=== PATIENT | female | born 1970 | race Caucasian/White ===

== ENCOUNTER 2017-04-24 04:21 | Emergency (ER) | payer BC, SELFPAY ==
[2017-04-24 04:23] VITALS: BP 143/89; PULSE 87; RESP 18; TEMP 37.6; O2SAT 99; BMI 40.0
[2017-04-24 04:32] LABS: Mucous, Urine 0 SEEN /hpf (<or=2+)
[2017-04-24 04:42] LABS: Color, Urine Red (Yellow); Glucose, Dipstick Normal (Normal); Ketone-Dipstick 15 mg/dl (Negative); Leukocyte Esterase-Dipstick 500 /ul (Negative); Nitrite-Dipstick Negative (Negative); Occult Blood-Urine 250 /ul (Negative); Protein-Dipstick 100 mg/dl (Negative); Urine Bilirubin Dipstick Negative (Negative); Urine Clarity Cloudy (Clear); Urine Urobilinogen Normal (Normal)
[2017-04-24 04:51] LABS: Bacteria 1+ /hpf (None Seen); Red Blood Cells-Urine > 100 SEEN /hpf (0-5); Squamous Epithelial Cells - UA 0-5 SEEN /hpf (5-10); White Blood Cells >100 SEEN /hpf (0-5)
--- NOTE | 2017-04-24 05:11 | ED.VISSUMM ---
- ER Visit Summary Date of Service: 04/24/17 Chief Complaint: [Hematuria] History of Present Illness: The patient is a 46 F [who presents the emergency department with hematuria that started at 1 AM this morning. She has had some mild frequency over the last couple of days. Some mild dysuria. No back pain no nausea or vomiting no other associated symptoms. She has had subjective fevers at home which she describes as feeling warm she has a history of UTIs as well as kidney stones hypertension GERD IBS depression. She was on Bactrim 3 weeks ago for UTI and she had a CAT scan 3 weeks ago for possible kidney stones but did not have urolithiasis at that time. She has had a cholecystectomy and 2 C-sections] Physical Examination: [] Temperature 99.7 blood pressure 143/89 WN WD NAD PERRL EOMI MMM NECK supple and nontender, no masses RRR no murmur rub or gallop, no peripheral edema, symmetric radial pulses CTAB no respiratory distress ABDOMEN is soft she has mild suprapubic and bilateral lower quadrant tenderness, normal bowel sounds, no distension, no rebound or guarding No CVA tenderness SKIN is warm and dry no rashes Alert and Oriented x3, CN II-XII in tact, no motor or sensory deficits, gait normal No lymphadenopathy Test Results: [] Emergency Department Course and Treatment: [Urine was obtained and was loaded with white blood cells and red blood cells. Urine culture was sent. This is likely hemorrhagic cystitis. She has no signs of urolithiasis at this point. She will be given Keflex for home. She was given precautions for which to return including worsening symptoms flank pain or other concerns. She will follow-up with her primary physician.] Treatment Plan: [] Disposition: [Discharge] Impression: [Hemorrhagic cystitis] This note was generated with [employer] dictation software. It may contain incorrect words, spelling, and punctuation that were not noted in review of the chart prior to signing ED Disposition - Plan for ED Patient: Chief Complaint: Complaint Referrals: Joshua Wu MD [Primary Care Provider] -
--- NOTE | 2017-04-24 05:14 | ED.DEP ---
ED Disposition - Plan for ED Patient: Chief Complaint: Complaint Instructions: ED UTI Cystitis Female Prescriptions: Cephalexin [Keflex] 500 mg PO Q8 #21 capsule Phenazopyridine HCl [Pyridium] 200 mg PO BID PRN PRN #9 tablet PRN Reason: Pain Referrals: Joshua Wu MD [Primary Care Provider] - 3-5 Days
[2017-04-24] MEDS: Cephalexin 250 MG Capsule 500 MG PO (05:19)
[2017-04-24] MEDS: Phenazopyridine 95 MG Tablet 190 MG PO (05:31)
--- NOTE | 2017-04-24 05:34 | ED.RN ---
DISCHARGE INSTRUCTIONS GIVEN TO AND REVIEWED WITH PATIENT, PATIENT DENIES QUESTIONS OR CONCERNS AND VOICES UNDERSTANDING OF DISCHARGE INSTRUCTIONS. PT AMBULATES OUT OF ROOM WITHOUT DIFFICULTY.
== END 2017-04-24 05:35 | disposition home or self-care (01) ==
PROVIDERS: Emergency Provider Emergency Medicine; Family Provider Family Medicine; PCP Family Medicine
DX: N30.90 Cystitis, unspecified without hematuria (principal); E66.9 Obesity, unspecified; F32.9 Major depressive disorder, single episode, unspecified; I10 Essential (primary) hypertension; K21.9 Gastro-esophageal reflux disease without esophagitis; Z90.49 Acquired absence of other specified parts of digestive tract; Z87.442 Personal history of urinary calculi; Z87.440 Personal history of urinary (tract) infections; K58.9 Irritable bowel syndrome, unspecified
CPT/HCPCS: 81001; 87086; 87088; 87186; 99283

== ENCOUNTER 2017-05-21 19:16 | Emergency (ER) | payer BC, SELFPAY ==
[2017-05-21 19:16] VITALS: BP 129/64; PULSE 90; RESP 16; TEMP 36.9; O2SAT 97; BMI 39.9
--- NOTE | 2017-05-21 19:26 | ED.VISSUMM ---
- ER Visit Summary Date of Service: 05/21/17 Chief Complaint: Dysuria and hematuria. History of Present Illness: The patient is a 47 F history of UTIs and depression. UTI was diagnosed in late March and was E. coli sensitive to all antibiotics. She was treated with Keflex and it resolved. Patient just recently had a gastric balloon placed by [facility] for weight loss. She states she started having urinary tract symptoms last several days with hematuria and dysuria. She denies fever or back pain. She denies vomiting or diarrhea. Physical Examination: Well-appearing middle-age female. Vital signs are stable afebrile. She does not look septic or toxic. She is no acute distress. HEENT exam unremarkable. Moist wheeze membranes. Neck nontender. Lungs clear to auscultation bilaterally. Heart regular rate and rhythm no murmur. Abdomen soft and nontender. Normal bowel sounds no peritoneal signs. Moving all 4 extremities. Neurovascular intact. Back exam nontender. Neurologically she is awake alert no focal deficits. Test Results: Urinalysis UTI with greater than 100 white cells . 5 to 10 epithelial cells 1+ bacteria. Negative nitrites. This will be treated for UTI. Also patient's last urine culture was E. coli was sensitive to everything. Emergency Department Course and Treatment: Patient doing well repeat exam at 2014. Will be given a dose of Keflex here and discharged home on Keflex 4 times daily for 1 week. Follow-up primary care physician. I am not doing a urine culture this time since the last UTI with urine culture. Treatment Plan: [] Disposition: Discharge to home Impression: Acute UTI This note was generated with [employer] dictation software. It may contain incorrect words, spelling, and punctuation that were not noted in review of the chart prior to signing ED Disposition - Plan for ED Patient: Chief Complaint: Complaint Referrals: Joshua Wu MD [Primary Care Provider] -
--- NOTE | 2017-05-21 19:29 | ED.DCSUM_ITS ---
- ER Visit Summary Date of Service: 05/21/17 Chief Complaint: Dysuria and hematuria. History of Present Illness: The patient is a 47 F history of UTIs and depression. UTI was diagnosed in late March and was E. coli sensitive to all antibiotics. She was treated with Keflex and it resolved. Patient just recently had a gastric balloon placed by [facility] for weight loss. She states she started having urinary tract symptoms last several days with hematuria and dysuria. She denies fever or back pain. She denies vomiting or diarrhea. Physical Examination: Well-appearing middle-age female. Vital signs are stable afebrile. She does not look septic or toxic. She is no acute distress. HEENT exam unremarkable. Moist wheeze membranes. Neck nontender. Lungs clear to auscultation bilaterally. Heart regular rate and rhythm no murmur. Abdomen soft and nontender. Normal bowel sounds no peritoneal signs. Moving all 4 extremities. Neurovascular intact. Back exam nontender. Neurologically she is awake alert no focal deficits. Test Results: Urinalysis UTI with greater than 100 white cells . 5 to 10 epithelial cells 1+ bacteria. Negative nitrites. This will be treated for UTI. Also patient's last urine culture was E. coli was sensitive to everything. Emergency Department Course and Treatment: Patient doing well repeat exam at 2014. Will be given a dose of Keflex here and discharged home on Keflex 4 times daily for 1 week. Follow-up primary care physician. I am not doing a urine culture this time since the last UTI with urine culture. Treatment Plan: [] Disposition: Discharge to home Impression: Acute UTI This note was generated with [employer] dictation software. It may contain incorrect words, spelling, and punctuation that were not noted in review of the chart prior to signing ED Disposition - Plan for ED Patient: Chief Complaint: Complaint Referrals: Joshua Wu MD [Primary Care Provider] -
[2017-05-21 19:42] LABS: Color, Urine Yellow (Yellow); Glucose, Dipstick Normal (Normal); Ketone-Dipstick 50 mg/dl (Negative); Leukocyte Esterase-Dipstick 500 /ul (Negative); Mucous, Urine 0 SEEN /hpf (<or=2+); Nitrite-Dipstick Negative (Negative); Occult Blood-Urine 250 /ul (Negative); Protein-Dipstick 100 mg/dl (Negative); Specific Gravity, Urine 1.025 (1.002-1.030); Urine Clarity Cloudy (Clear); Urine Urobilinogen 4 mg/dl (Normal)
[2017-05-21 19:45] LABS: Urine Bilirubin Dipstick 1 mg/dL (Negative)
[2017-05-21 19:49] LABS: Red Blood Cells-Urine 50-100 SEEN /hpf (0-5); White Blood Cells >100 SEEN /hpf (0-5)
[2017-05-21 19:50] LABS: Amorphous Sediment 1+ URATE; Bacteria 1+ /hpf (None Seen); Squamous Epithelial Cells - UA 5-10 SEEN /hpf (5-10)
--- NOTE | 2017-05-21 20:21 | ED.DEP ---
ED Disposition - Plan for ED Patient: Disposition: Home or Assisted Living Chief Complaint: Complaint Instructions: ED UTI Cystitis Male Prescriptions: Cephalexin [Keflex] 500 mg PO Q6 #30 cap Referrals: Joshua Wu MD [Primary Care Provider] - 1 Week Additional Instructions: Fluids and rest. Tylenol Motrin for pain. Cranberry juice. Take all the antibiotic. Follow-up your primary care physician.
[2017-05-21] MEDS: Cephalexin 250 MG Capsule 500 MG PO ×2 (20:39)
[2017-05-21 20:41] VITALS: PULSE 91; RESP 22; O2SAT 100
--- NOTE | 2017-05-21 20:41 | ED.RN ---
THIS NURSE REVIEWED D/C INSTRUCTIONS WITH PT. PT VERBALIZED UNDERSTANDING OF INSTRUCTIONS. PT DENIES FURTHER NEEDS OR QUESTIONS AT THIS TIME. PT AMBULATES FROM ROOM ON OWN WITHOUT ASSISTANCE FROM STAFF
== END 2017-05-21 20:42 | disposition home or self-care (01) ==
PROVIDERS: Emergency Provider Emergency Medicine; Family Provider Family Medicine; PCP Family Medicine
DX: N39.0 Urinary tract infection, site not specified (principal); I10 Essential (primary) hypertension; Z87.440 Personal history of urinary (tract) infections; F32.9 Major depressive disorder, single episode, unspecified
CPT/HCPCS: 81001; 99283

== ENCOUNTER 2017-12-28 08:37 | Day surgery (SDC) | payer BC, SELFPAY ==
[2017-12-26 14:47] LABS: Hematocrit 38.9 % (37-47); Hemoglobin 12.6 g/dl (12.0-15.0); Mean Corp Hgb Conc 32.4 g/gl (32-36); Mean Corpuscular Hgb 26.7 pg (27.0-32.0); Mean Corpuscular Volume 82.4 fL (81-99); Mean Platelet Vol. 10.7 fl (6.2-12.0); Platelet Count 291 K/mm3 (150-450); RBC Distribution Width CV 13.8 % (11.6-14.6); RBC Distribution Width SD 40.6 fl (35.1-43.9); Red Blood Count 4.72 M/mm3 (4.2-5.4); White Blood Count 10.7 K/mm3 (4.4-11.0)
[2017-12-26 14:50] LABS: Scan Indicated on CBC? Y/N NO
[2017-12-28] VITALS (11 sets, daily range): BP systolic 82–137; BP diastolic 54–97; PULSE 67–101; RESP 16–18; TEMP 36.2–36.9; O2SAT 93–98; BMI 36.6
--- NOTE | 2017-12-28 | HYST_PTH ---
PATIENT: NORE[place]OS [place] [facility] [id number] AGE/SX: 47/F ROOM: RE12/28/[address]: Dr. Ghazal Mcintyre, MDDOB: 1970 BED: DIS: 12/29/2017 SPEC #: [id number] RECD: 12/28/17 14:13 STATUS: [place] IVA #: [id number] DAVID: 12/28/17 00:[address]: Ghazal Mcintyre DEPT: SURGICAL PATHOLOGY RECD BY: Anatoly Edmonds ENTERED: 12/28/17 14:13 SP TYPE: HYSTERECT OTHR DR: Dr. Joshua Wu MD Tissues: Uterus, NOS Procedures: Surgery Specimen Level V HEADER OPERATION: Total laparoscopic hysterectomy, bilateral salpingectomy PRE-OP DIAGNOSIS: Abnormal uterine bleeding, pelvic pain TISSUE SUBMITTED: Uterus, cervix, bilateral fallopian tubes MICROSCOPIC DIAGNOSIS Uterus, cervix, bilateral fallopian tubes, hysterectomy and bilateral salpingectomy: Cervix - no pathologic diagnosis. Endometrium - extensive fibrosis. - Focal area of weakly proliferative endometrium. Myometrium - no pathologic diagnosis. Bilateral fallopian tubes - no pathologic diagnosis. Bilateral paratubal cysts. SJ:ministerio 12/29/17 MICROSCOPIC DESCRIPTION Slides are reviewed. GROSS DESCRIPTION Received in fixative is one container labeled with the patient's name and designated uterus, cervix, bilateral fallopian tubes. The specimen consists of a hysterectomy specimen consisting of uterus with cervix and detached bilateral fallopian tubes. The uterus with cervix weighs 56 gm and measures 7 x 5 x 3.5 cm. A portion of proximal right fallopian tube is present at one cornu measuring 0.5 cm in length and 0.5 cm in diameter. The serosal surface is oliveira, glistening. The ectocervical mucosa is unremarkable. The external os is circular in contour. The endocervical canal measures 2.5 cm in length and the endocervical mucosa is oliveira, glistening and unremarkable. The endometrial cavity is narrow and measures 3.5 cm in length and 0.5 cm in width. The endometrium appears fibrotic and measures <0.1 cm in greatest dimension. Sections of the uterine wall do not reveal any mass lesion and it measures up to 1.5 cm in thickness. The fallopian tubes are not identified as right or left and one of the fallopian tube measures 5 cm in length and up to 0.5 cm in diameter. Sections reveal unremarkable cut surfaces. The fimbrial end is not identified. Also received is a detached piece of fimbrial end measuring 2 x 1.5 x 0.5 cm. Two paratubal cysts are noted measuring 0.2 and 0.5 cm in greatest dimension. The second fallopian tube measures 4 cm in length and 0.5 cm in diameter. The fimbrial end is not identified. Sections reveal unremarkable cut surfaces. A detached paratubal cyst is also noted measuring 1 cm in greatest dimension. A detached small piece of fallopian tube is also noted measuring 0.7 cm in greatest dimension. This piece is inked black. A second piece of fimbrial end is also noted with portion of fallopian tube including fimbrial end measuring 2 cm in length and 0.5 cm in diameter. Automatic [employer]endant sections are submitted in eight cassettes as follows: 1 - anterior cervix, 2 - posterior cervix, 3 & 4 - anterior uterine wall, 5 & 6 - posterior uterine wall, 7 - one fallopian tube, one fimbrial end and attached proximal portion of right fallopian tube, 8 - second fallopian tube, second fimbrial end and detached small piece of fallopian tube. The proximal portion of right fallopian tube and detached small piece of fallopian tube are inked black. / MAYDA:ministerio 12/28/17 TC:5 CPT: 28913
[2017-12-28 09:07] LABS: Internal QC Validated? YES +Cl - CLEAR BKGD; Pregnancy, Urine Negative Negative
[2017-12-28] MEDS: Phenazopyridine 95 MG Tablet 190 MG PO (09:25)
[2017-12-28] MEDS: Bupivacaine Mpf 0.5% 30 ML VIAL (12:02)
--- NOTE | 2017-12-28 12:46 | PCM.OP.BLANK ---
Operative Report Date of Procedure: 12/28/17 Pre-Operative Diagnosis: AUB, Pelvic pain Post-Operative Diagnosis: same, Surgery/Procedure Performed:: TLH, Bilateral salpingectomy, Cysto Description of Surgical Findings: Uterus with small pedunculated fibroid. Normal ovaries, tubes with bilateral filshie clips Surgeon: Dr. Ghazal Parker knit tubing dyer: Dr. Frances Larkin Type of Anesthesia:: General Special Medications: 1% Lidocaine Specimen's removed: uterus, cervix, bilateral tubes Drains: tracy - total output 450cc Estimated Blood Loss (mL): 50cc Fluids replaced: 1700cc LR Description of Procedure: Patient take to OR and prepped and draped in usual sterile fashion in dorsal lithotomy position with her arms tucked in a neurologically safe and neutral position. The uterus sounded to 7 cm. The Vcare uterine manipulator was sutured into place at 3/9:00 position and tracy were placed. Attention was turned to the abdomen. All port sites were infiltrated with 1% lidocaine before the incisions were made. The anterior abdominal wall was tented up with towel clamps and using a direct entry approach a 5 mm intraumbilical port was placed. Intraperitoneal placement was confirmed with the laparoscope and the pneumoperitoneum was created. The patient was placed in Trendelenburg and 5 mm right and left lower quadrant ports were placed under direct visualization. Air seal rapid insufflator was used. The bowel was swept away. Ovaries appeared normal. The mesosalpinx starting at fimbriated end were grasped, clamped, sealed and transected with the Ligasure. The round ligaments were divided. The anterior peritoneum was dissected down to create the bladder flap with blunt dissection and the LigaSure. The uterine arteries were isolated, clamped, sealed and cut. There was minimal back bleeding from the uterus. Straight bites on uterine arteries performed to drop them off the cuff. The Vcare was used as guide to create colpotomy using monopolar tip of ligasure. once specimen was removed attention was turned to vaginal portion. The specimen was handed off. The cuff was closed with interrupted 0-vicryl figure of 8 sutures. Cystoscopy was performed bilateral ureters were visualized with good efflux. bladder was intact. tracy replaced and sponge stick placed in vagina. The pneumoperitoneum was recreated and the cuff and pedicles were hemostatic. Presley was placed over cuff and pedicles. The skin incisions were closed with skin glue and 3-0 monocryl in the LLQ port site. The vaginal sweep was completed by me. Grafts/Implants Used: none
[2017-12-28] MEDS: Ketorolac 30 MG/ML Syringe IV ×2 (15:20→21:25)
[2017-12-28] MEDS: oxyCODONE 5 MG Tablet PO (15:37)
[2017-12-28] MEDS: HYDROmorphone 1 MG/ML Syringe IV ×2 (18:44→22:46)
[2017-12-28] MEDS: buPROPion 100 MG Tablet PO (21:25)
[2017-12-28] MEDS: Docusate Sodium 100 MG Capsule PO (21:25)
[2017-12-28] MEDS: Lactated Ringers 1,000 ML 100 ML IV (22:48)
[2017-12-29 01:38] VITALS: BP 116/80; PULSE 90; RESP 16; TEMP 36.7; O2SAT 94
[2017-12-29] MEDS: oxyCODONE 5 MG Tablet PO ×2 (02:28→07:47)
[2017-12-29] MEDS: Acetaminophen 500 MG Tablet 1000 MG PO (02:28)
[2017-12-29] MEDS: Ketorolac 30 MG/ML Syringe IV ×2 (04:10→09:05)
[2017-12-29 05:49] VITALS: BP 120/80; PULSE 87; RESP 16; TEMP 37.1; O2SAT 95
[2017-12-29 07:55] VITALS: BP 141/83; PULSE 88; RESP 14; TEMP 37.2; O2SAT 97
[2017-12-29 07:56] LABS: Hematocrit 34.7 % (37-47); Hemoglobin 11.3 g/dl (12.0-15.0); Mean Corp Hgb Conc 32.6 g/gl (32-36); Mean Corpuscular Hgb 26.8 pg (27.0-32.0); Mean Corpuscular Volume 82.4 fL (81-99); Mean Platelet Vol. 10.7 fl (6.2-12.0); Platelet Count 265 K/mm3 (150-450); RBC Distribution Width CV 13.5 % (11.6-14.6); RBC Distribution Width SD 39.8 fl (35.1-43.9); Red Blood Count 4.21 M/mm3 (4.2-5.4); White Blood Count 14.5 K/mm3 (4.4-11.0)
[2017-12-29 08:03] LABS: Scan Indicated on CBC? Y/N NO
--- NOTE | 2017-12-29 08:03 | PCM.PN.OB ---
Subjective: pt seen at bedside, doing well. pt reports good pain control. pt reports passing flatus, tolerating regular diet. denies CP, SOB, dizziness. - Physical Exam General: Alert, Oriented x3 Lungs: Clear to auscultation, Normal air movement Cardiovascular: Regular rate, Regular Rhythm Abdomen: Bowel Sounds Present, Soft, Non-Distended, Passing Flatus, - - incison sites are dry and intact Extremities: No Calf Tenderness Vital Signs Temp Pulse Resp BP Pulse Ox 98.9 F 88 14 141/83 H 97 12/29/17 07:55 12/29/17 07:55 12/29/17 07:55 12/29/17 07:55 12/29/17 07:55 Oxygen Flow Rate (L/min) 2 Oxygen Delivery Method Room Air Weight: 102.9 kg Body Mass Index (BMI) 36.6 Intake and Output for Last 24 Hours 12/27/17 12/28/17 12/29/17 23:59 23:59 23:59 Intake Total 2200 / 2200 2403 / 2403 Output Total 1920 / 1920 850 / 850 Balance 280 / 280 1553 / 1553 Laboratory Tests Past 24 Hrs 12/28/17 12/29/17 08:56 06:58 WBC Pending RBC Pending Hgb Pending Hct Pending MCV Pending MCH Pending MCHC Pending RDW Pending RDW Differential Pending Plt Count Pending Urine Test Negative Medical Necessity - Tobacco Use Smoking Status: Never smoker Assessment/Plan POD#1, s/p TLH, bilateral salpingectomy, cyst 1) routine care 2) ambulation 3) pain mgmt 4) labs pending 5) if stable Hg/HCT may discharge after breakfast
--- NOTE | 2017-12-29 08:09 | DCINST_ITS ---
Discharge Diet: No Restrictions Discharge Activity: Return to Normal Activity, May Not Drive - while taking narcotic pain medications., May Shower May resume sexual activity in: 6-8 weeks Lifting Restrictions: 20 Call your doctor if your incision/area has: Continuous Slow Oozing, Sudden Increased Bleeding, Increased Pain/ Swelling, Increased Redness, Foul Smelling Discharge Call your doctor if you observe: Fever of 101 or Higher, Inability to urinate, Inability to have a bowel movement, Using more than one pad per hour Cleanse incision/area with: Soap & Water, Keep Dressing Clean & Dry, - - you have skin glue over incision sites- let soap and water run over them and dab dry. do not pick off glue Allergies/Adverse Reactions: Allergies Iodinated Contrast- Oral and IV Dye [Iodinated Contrast Media - IV Dye] Allergy (Severe, Verified 12/25/17 14:54) Anaphylaxis AUDRA Inhibitors Allergy (Verified 12/25/17 14:54) Shortness of breath povidone-iodine [From Betadine] Allergy (Verified 12/25/17 14:54) Unknown soap [From Betadine] Allergy (Verified 12/25/17 14:54) Unknown Medications to take at Discharge Cholecalciferol (Vitamin D3) [Vitamin D3] 2,000 unit PO DAILY 03/28/17 Loratadine [Claritin] 10 mg PO DAILY 03/28/17 Losartan Potassium [Cozaar] 100 mg PO DAILY 03/28/17 Omeprazole 40 mg PO DAILY 03/28/17 Sertraline HCl [Zoloft] 100 mg PO DAILY 03/28/17 buPROPion tablets [Wellbutrin tablets] 100 mg PO BID 03/28/17 Docusate Sodium [Colace] 100 mg PO BID #0 capsule 12/29/17 Primary Care Physician: Joshua Wu MD [Primary Care Provider] - Test Results: Test results from this visit will be discussed in further detail at your follow- up appointment, if applicable. Please Follow Up With: Ghazal Mcintyre MD When: 2 weeks
[2017-12-29] MEDS: Docusate Sodium 100 MG Capsule PO (09:02)
[2017-12-29] MEDS: Loratadine 10 MG Tablet PO (09:02)
[2017-12-29] MEDS: Losartan Potassium 100 MG Tablet PO (09:03)
[2017-12-29] MEDS: Enoxaparin 40 MG/0.4 ML Syringe SC (09:04)
[2017-12-29] MEDS: buPROPion 100 MG Tablet PO (09:05)
[2017-12-29] MEDS: Sertraline 100 MG Tablet PO (09:05)
[2017-12-29] MEDS: 0.9% NaCl Peripheral Flush Adult/Peds IV (09:06)
== END 2017-12-29 11:14 | disposition home or self-care (01) ==
LOC: SDC 08:38 → AC 08:39 → MS3 12:33
PROVIDERS: Anesthesiology; Obstetrics & Gynecology; Family Provider Family Medicine; PCP Family Medicine; Visit Provider Obstetrics & Gynecology
PROC: 0UT94ZZ Resection of Uterus, Percutaneous Endoscopic Approach (ICD-10-PCS; CPT 58571; principal; 2017-12-28 10:25)
DX: R10.2 Pelvic and perineal pain (principal); N83.8 Other noninflammatory disorders of ovary, fallopian tube and broad ligament; D25.9 Leiomyoma of uterus, unspecified; K21.9 Gastro-esophageal reflux disease without esophagitis; F32.9 Major depressive disorder, single episode, unspecified; I10 Essential (primary) hypertension; J45.909 Unspecified asthma, uncomplicated
CPT/HCPCS: 00840; 58571; 36415; 81025; 85027; 86850; 86900; 88307; J7120; A4216; J2405

== ENCOUNTER 2018-09-30 15:23 | Emergency (ER) | payer BC, SELFPAY ==
[2018-09-30 15:24] VITALS: BP 160/92; PULSE 86; RESP 16; TEMP 36.9; O2SAT 98; BMI 40.2
--- NOTE | 2018-09-30 16:10 | RAD_ITS ---
STUDY: X-RAY - UNILATERAL RIBS ( LEFT ) WITH CHEST REASON FOR EXAM: Female, 48 years old. Left anterior rib pain TECHNIQUE - RIBS: 4 view(s) of the ribs. TECHNIQUE - CHEST: Single frontal view of the chest. COMPARISON: None. FINDINGS - RIBS: Normal visualized ribs without a demonstrated fracture. FINDINGS - CHEST: The lungs are clear and expanded. There is no demonstrated pleural abnormality. Normal size heart. Normal mediastinum and lorena. Normal visualized pulmonary arteries. Normal visualized aortic arch and descending thoracic aorta. Normal visualized thoracic spine. Normal visualized ribs, clavicles, and shoulders. There is no demonstrated abnormality of the visualized soft tissue structures of the upper abdomen. RAD/Ribs Uni Min 3V w/PA Chest IMPRESSION: RIBS: Normal x-ray examination of the ribs. CHEST: Normal x-ray examination of the chest. Electronically Signed: Esteban Moreno MD at 17:06 EDT , Service support ,
[2018-09-30] MEDS: Morphine 4 MG/ML Syringe IM ×2 (16:26→18:14)
[2018-09-30] MEDS: Ondansetron 4 MG/2 ML Vial IM (16:26)
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
--- NOTE | 2018-09-30 17:52 | ED.DEP ---
ED Disposition - Plan for ED Patient: Prescriptions: Oxycodone HCl/Acetaminophen [Percocet 5/325] 1 tab PO Q6H PRN PRN 5 Days #20 tab PRN Reason: Pain Prescription Printed Referrals: Joshua Wu MD [Primary Care Provider] - 5-7 Days
--- NOTE | 2018-09-30 17:53 | ED.DEP ---
ED Disposition - Plan for ED Patient: Instructions: Chest Wall Contusion Prescriptions: Oxycodone HCl/Acetaminophen [Percocet 5/325] 1 tab PO Q6H PRN PRN 5 Days #20 tab PRN Reason: Pain Prescription Printed Referrals: Joshua Wu MD [Primary Care Provider] - 5-7 Days
[2018-09-30 18:20] VITALS: BP 128/84; PULSE 73; RESP 19; O2SAT 100
== END 2018-09-30 18:21 | disposition home or self-care (01) ==
PROVIDERS: Emergency Provider Emergency Medicine; Family Provider Family Medicine; PCP Family Medicine
DX: S20.219A Contusion of unspecified front wall of thorax, initial encounter (principal); Y93.55 Activity, bike riding; V19.9XXA Pedal cyclist (driver) (passenger) injured in unspecified traffic accident, initial encounter; Y92.008 Other place in unspecified non-institutional (private) residence as the place of occurrence of the external cause; Y99.9 Unspecified external cause status; I10 Essential (primary) hypertension
CPT/HCPCS: 71101; 99282; J2405

== ENCOUNTER 2024-04-01 15:22 | Emergency (ER) | payer OTHER, SELFPAY ==
[2024-04-01 15:24] VITALS: BP 145/97; PULSE 83; RESP 18; TEMP 35.6; O2SAT 98; BMI 38.9
[2024-04-01 15:58] VITALS: O2SAT 98
--- NOTE | 2024-04-01 15:58 | EKG12_ITS ---
Test Reason : CP Blood Pressure : */* mmHG Vent. Rate : 77 BPM Atrial Rate : 77 BPM P-R Int : 154 ms QRS Dur : 94 ms QT Int : 402 ms P-R-T Axes : 44 2 27 degrees QTcB Int : 454 ms Normal sinus rhythm Normal ECG Confirmed by Casey Recio ([id number]), general expeditor RAFA QUINTANA ([id number]) on 04/02/2024 1:23:54 PM Referred By: SHERIF/ZARA Confirmed By: Casey Recio
--- NOTE | 2024-04-01 15:59 | EDS_ITS ---
HPI History of Present Illness Chief Complaint: Chest Pain Informant: patient Narrative Narrative: 53-year-old female presents mainly for right-sided chest pain that started gradually about a week ago and has progressed, was inframammary now it is throughout the right chest upper as well, hurts to move hurts to take a deep breath, dyspneic whenever she coughs or takes a deep breath and the pain is bad. Otherwise no dyspnea. No cough or fevers. States pain goes around into her back at times, she states I am just sore everywhere now. She has other issues as well. She states that she drove to and from [place] last week but the pain started days before that trip. She has no pain or swelling in her legs, but they are cramping like she is dehydrated. When asked if she has any reason to be dehydrated she states she probably has not been drinking enough fluids. She has no reason to have any injury or overuse of muscles in her ribs or chest wall. She has had no falls lately. She states she has history of IBS and kidney stones, and she cannot tell if any of this is related because the pain is severe and those pains are severe as well. she has been having abdominal pain for the past week but not yesterday or today, she is having some tenesmus which she has with her IBS, she is having no urinary symptoms or pain in her back like a kidney stone. [facility] Medical History (Updated 04/01/24 @ 16:[address] Willard Adams MD) IBS (irritable bowel syndrome) Kidney stones HTN (hypertension) Home Medications ?Medication ?Instructions ?Recorded ?Last Taken ?Type bupropion HCl 100 mg tablet 100 mg PO BID 03/28/17 03/28/17 History loratadine 10 mg tablet (Allergy 10 mg PO DAILY ALLERGIES 03/28/17 03/28/17 History Relief (loratadine)) losartan 100 mg tablet 100 mg PO DAILY BP 03/28/17 12/28/17 07:45 History omeprazole 40 mg capsule,delayed 40 mg PO DAILY GERD 03/28/17 12/28/17 07:45 History release sertraline 100 mg tablet (Zoloft) 100 mg PO DAILY 03/28/17 03/28/17 History Allergy/AdvReac Type Severity Reaction Status Date / Time Iodinated Contrast Media Allergy Severe Anaphylaxis Verified 04/01/24 15:24 (Iodinated Contrast Media - IV Dye) AUDRA Inhibitors Allergy Shortness Verified 04/01/24 15:24 of breath povidone-iodine (From Allergy Unknown Verified 04/01/24 15:24 Betadine) soap (From Betadine) Allergy Unknown Verified 04/01/24 15:24 Social History Smoking Status: Never smoker ROS ROS ED Constitutional Constitutional ED: Denies chills or fever(s) Eyes Eyes: Denies change in vision or diplopia ENT ENT ED: Denies rhinorrhea or sore throat Cardiovascular Cardiovascular: Reports as per HPI and chest pain; Denies palpitations Respiratory/Chest Respiratory/Chest: Reports dyspnea; Denies cough Gastrointestinal Gastrointestinal: Reports abdominal pain and nausea; Denies diarrhea or vomiting Genitourinary Genitourinary ED: Denies dysuria, flank pain, hematuria or urinary frequency Musculoskeletal Musculoskeletal: Reports back pain; Denies neck pain Integumentary Denies abscess or rash Neurologic Neurologic: Denies headache(s), paresthesias or weakness EXAM Physical Exam Const Vital Signs: 04/01/24 15:24 04/01/24 15:58 Temperature 96.1 F L Temperature Source Temporal Pulse Rate 83 Respiratory Rate 18 Blood Pressure 145/97 H Blood Pressure Mean 113 Pulse Ox 98 98 Oxygen Delivery Method Room Air Room Air Positive well nourished, well developed and obese General Appearance ED: well developed and NAD Nutritional Appearance: obese HEENT Reports moist mucous membranes normocephalic and atraumatic Eyes PERRL and EOMs intact bilaterally Neck full ROM and supple Chest Wall inspection of chest normal Chest Narrative: Tender throughout the right anterior chest, less into the lateral area. No crepitance or step-off or subcutaneous emphysema. Resp normal respiratory effort and clear to auscultation bilaterally Resp Narrative: Breaths are shallow limiting exam but lungs are otherwise clear and equal bilaterally Cardio regular rate, regular rhythm and no murmurs Rate: Negative for tachycardic GI non-tender and non-distended GI Narrative: Patient has some mild tenderness in the right upper quadrant that she thinks is just making her right lower rib pain worse. She states it is not as painful to palpate there compared with the right ribs. Rest of the abdomen is benign and nontender. Auscultation: normoactive bowel sounds Palpation: soft Back/Spine no CVA tenderness Back/Spine Narrative: There is tenderness in the right paraspinal mid-lower thoracic ribs superficial ly and no tenderness elsewhere. Inspection normal. General Back: other FROM, But needs help sitting up due to pain Extremity normal to inspection Extremity Narrative: No calf tenderness or palpable cords. General Extremety ED: Negative for edema, pulses abnormal or tenderness General Extremity: Negative for edema or pulses abnormal Neuro oriented x3, CN's II-XII intact bilaterally, no sensory deficits noted and gait normal Sensorium / Orientation: awake and alert Motor Exam: strength 5/5 throughout Psych Mood & Affect: anxious Skin no rashes or lesions noted and no wounds Heart Score History: Slightly/Non-Suspicious ECG: Normal Age: </= 45 years Risk Factors: 1 or 2 Risk Factors (HTN) Troponin: </= Normal Limit Score: 1 MDM MDM MDM Narrative Medical decision making narrative: This patient is moving her chin down and making her right chest hurt more. I think this is all musculoskeletal. She needs help sitting up because it hurts to move. She would otherwise meet PERC criteria however she is too old to score 0 so I am obtaining a D-dimer as well as a right rib series/chest x-ray, her EKG is normal, in order to rule out cardiopulmonary dangerous etiologies. The right rib series and PA chest 4 views on my interpretation shows no evidence of pneumonia, pneumothorax, rib fracture, bony mass on a rib, or pulmonary effusion. Her troponin is normal, her D-dimer is normal ruling out pulmonary embolus as well as DVT given her recent long car trip. She was given Toradol we were working her up, and afterwards she has improvement. Patient is reassured I think this is all musculoskeletal in the workup and vital signs and ancillaries all support this. Given appropriate discharge instructions, at discharge conversation, patient states, I feel like I tweaked it doing something but I cannot remember. Lab Data Attestation: I reviewed the patient's lab results. Labs: Laboratory Results - last 24 hr 04/01/24 16:09 WBC 7.6 RBC 4.83 Hgb 13.8 Hct 42.5 MCV 88.0 MCH 28.6 MCHC 32.5 RDW Std Deviation 39.9 RDW Coeff of Andressa 12.5 Plt Count 249 MPV 10.2 Immature Gran % (Auto) 0.300 Neut % (Auto) 48.9 Lymph % (Auto) 37.9 Wake % (Auto) 8.2 Eos % (Auto) 3.9 Baso % (Auto) 0.8 Absolute Neuts (auto) 3.7 Absolute Lymphs (auto) 2.88 Nucleated RBC % 0 D-Dimer Quant (PE/DVT) 0.28 Sodium 139 Potassium 4.1 Chloride 108 H Carbon Dioxide 30.0 Anion Gap 2 L BUN 12 Creatinine 0.85 Estim Creat Clear Calc 93.69 Est GFR (MDRD) Af Amer 90 Est GFR (MDRD) Non-Af 75 BUN/Creatinine Ratio 14.2 Glucose 109 H Calcium 8.6 Troponin I High Sens 4 Rhythm Strip Rhythm Strip: Sinus Rhythm Rate: 77 Ectopy: None EKG Initial EKG: Attestation: I personally reviewed and interpreted this EKG as follows: Interpretation: Sinus Rhythm and No Acute Injury Pattern Comments: Nml axis & intervals; nml EKG Prior EKG tracings: not available for review Discharge Plan Triage Chief Complaint: Chest Pain ED Provider: Willard Adams Dx/Rx/DC Orders Clinical Impression: Strain of chest wall Instructions: ED Chest Wall Strain Prescriptions: No Action sertraline [Zoloft] 100 MG tablet 100 mg PO DAILY omeprazole 40 MG capsule,delayed release(DR/EC) 40 mg PO DAILY bupropion HCl 100 MG tablet 100 mg PO BID losartan 100 MG tablet 100 mg PO DAILY loratadine [Allergy Relief (loratadine)] 10 MG tablet 10 mg PO DAILY Primary Care Provider: Joshua Wu Referrals: Joshua Wu MD [Primary Care Provider] - 10-14 Days if not better Activity Restrictions/Additional Instructions: nsaids recommended, such as ibuprofen or Aleve, as needed for pain. Print Language: [place]
[2024-04-01] MEDS: Ketorolac 30 MG/ML Syringe IV (16:14)
--- NOTE | 2024-04-01 16:20 | RAD_ITS ---
STUDY: X-RAY - UNILATERAL RIBS ( RIGHT ) WITH CHEST REASON FOR EXAM: Female, 53 years old. pain TECHNIQUE - RIBS: 4 view(s) of the ribs. TECHNIQUE - CHEST: 1 frontal view COMPARISON: None. FINDINGS - RIBS: Normal visualized ribs without a demonstrated fracture. FINDINGS - CHEST: The lungs are clear and expanded. There is no demonstrated pleural abnormality. Normal size heart. Normal mediastinum and lorena. Normal visualized pulmonary arteries. Normal visualized aortic arch and descending thoracic aorta. Normal visualized thoracic spine. Normal visualized ribs, clavicles, and shoulders. There is no demonstrated abnormality of the visualized soft tissue structures of the upper abdomen. RAD/Ribs Uni Min 3V w/PA Chest IMPRESSION: RIBS: Normal x-ray examination of the ribs. CHEST: Normal x-ray examination of the chest. Electronically Signed: Esteban Moreno MD at 17:02 EST ,
[2024-04-01 16:23] LABS: Absolute Lymphocyte Count 2.88 X10^3/uL (0.83-4.51); Absolute Neutrophil Count 3.7 X10^3/uL (2.0-7.7); Basophil# 0.06 X10^3/uL; Basophil% 0.8 % (0-1); Eosinophils% 3.9 % (0-5); Hematocrit 42.5 % (37-47); Hemoglobin 13.8 g/dL (12.0-15.0); Lymphocyte # 2.88 X10^3/ul (0.83-4.51); Lymphocyte % 37.9 % (19-41); Mean Corp Hgb Conc 32.5 g/dL (32-36); Mean Corpuscular Hgb 28.6 pg (27.0-32.0); Mean Platelet Vol. 10.2 fl (6.2-12.0); Monocyte# 0.62 X10^3/uL; Monocyte% 8.2 % (0-10); NRBC Flagged by Analyzer 0 % (0-5); Neutrophil # 3.72 X10^3/uL (2.7-7.7); Neutrophil % 48.9 % (47-70); Platelet Count 249 K/mm3 (150-450); RBC Distribution Width CV 12.5 % (11.6-14.6); RBC Distribution Width SD 39.9 fl (35.1-43.9); Red Blood Count 4.83 M/mm3 (4.2-5.4); White Blood Count 7.6 K/mm3 (4.4-11.0)
[2024-04-01 16:43] LABS: D-Dimer Quantitative (DVT/PE) 0.28 FEU/ug/m (0.27-0.49)
[2024-04-01 16:44] LABS: Anion Gap 2 (5-15); BUN 12 mg/dL (7-18); BUN/Creat Ratio 14.2 RATIO (10-20); Calcium,Total 8.6 mg/dL (8.5-10.1); Chloride 108 mmol/L (98-107); Creatinine, Serum 0.85 mg/dL (0.55-1.02); EST Glomerular Filtration Rate 75 mL/min (>60); Est Glom Filt Rate - Afr Amer 90 mL/min (>60); Estimated Creatinine Clearance 93.69 ml/min; Glucose 109 mg/dL (74-106); Potassium 4.1 mmol/L (3.5-5.1); Sodium Level 139 mmol/L (136-145); Troponin-I HS 4 pg/mL (3.0-54.0)
[2024-04-01 16:52] VITALS: BP 160/84; PULSE 78; RESP 18; TEMP 36.8; O2SAT 97
== END 2024-04-01 17:23 | disposition home or self-care (01) ==
LOC: ED 17:22
PROVIDERS: Emergency Provider Emergency Medicine; PCP Family Medicine; Visit Provider Emergency Medicine
DX: S29.011A Strain of muscle and tendon of front wall of thorax, initial encounter (principal); E86.0 Dehydration; K58.9 Irritable bowel syndrome, unspecified; E66.9 Obesity, unspecified; Z87.442 Personal history of urinary calculi; I10 Essential (primary) hypertension; X58.XXXA Exposure to other specified factors, initial encounter
CPT/HCPCS: 71101; 80048; 84484; 85025; 85379; 93005; 96374; 99283; A4216